=== PATIENT | female | born 1990 | race Caucasian/White ===

== ENCOUNTER 2017-09-15 20:04 | Observation (INO) | payer OTHER ==
[~2017-09-15] VITALS: Ht 154.9 cm; Wt 75.9 kg
[2017-09-15] MEDS ORDERED: BETAMETHASONE SOLUSPAN 6 MG/ML 5 ML VIAL IM ONE (22:25)
[2017-09-15 22:52] VITALS: BP 117/80
== END 2017-09-15 23:15 | disposition home or self-care (01) ==
LOC: 4S 20:04
PROVIDERS: ADMIT Obstetrics & Gynecology; ATTEND Obstetrics & Gynecology
DX: O42.913 Preterm premature rupture of membranes, unspecified as to length of time between rupture and onset of labor, third trimester (principal); O26.893 Other specified pregnancy related conditions, third trimester; R10.30 Lower abdominal pain, unspecified; Z3A.36 36 weeks gestation of pregnancy
CPT/HCPCS: 59025; 76805; 96372; G0378; J0702

== ENCOUNTER 2017-09-16 05:28 | Inpatient (IN) | payer OTHER ==
[~2017-09-16] VITALS: Ht 154.9 cm; Wt 75.7 kg
[2017-09-16] MEDS ORDERED: RINGERS SOLUTION,LACTATED 1,000 ML IV ONE ×2 (05:49→08:45)
[2017-09-16] MEDS ORDERED: RINGERS SOLUTION,LACTATED 1,000 ML IV SCH (05:51)
[2017-09-16] MEDS ORDERED: RINGERS SOLUTION,LACTATED 1,000 ML IV PRN (05:51)
[2017-09-16] MEDS ORDERED: OXYTOCIN 30 UNITS/LACT RINGERS 500 ML IV ONE (05:51)
[2017-09-16] MEDS ORDERED: METOCLOPRAMIDE HCL 5 MG/ML 2 ML VIAL IVP PRN (06:00)
[2017-09-16] MEDS ORDERED: CITRIC ACID/SODIUM CITRATE 30 ML SOLUTION UDCUP PO PRN (06:00)
[2017-09-16] MEDS ORDERED: AMPICILLIN SODIUM 2 GM/NS 100 ML IV ONE ×2 (06:18→06:30)
[2017-09-16 06:35] LABS: BASOPHILS % (AUTO) 0.1 % (0.0-2.0); EOSINOPHILS % (AUTO) 0 % (1.0-6.0); HEMATOCRIT 35.2 % (36-46); HEMOGLOBIN 12.3 g/dL (12.0-16.0); LYMPHOCYTES # (AUTO) 1.2 K/uL (1.0-4.8); LYMPHOCYTES % (AUTO) 12.1 % (22.0-44.0); MEAN CORPUSCULAR HEMOGLOBIN 33.6 pg (26.0-34.0); MEAN CORPUSCULAR HGB CONC 34.9 G/dL (31.0-37.0); MEAN CORPUSCULAR VOLUME 96 fL (80-100); MONOCYTES # (AUTO) 0.1 K/uL (0.1-1.0); NEUTROPHILS # (AUTO) 8.7 K/uL (1.8-7.7); PLATELET COUNT (AUTO)-OB 298 K/uL (150-450); RED BLOOD CELL COUNT(AUTO) 3.66 MIL/uL (4.00-5.20); RED CELL DISTRIBUTION WIDTH 12.9 % (11.5-14.5)
[2017-09-16 06:37] LABS: NEUTROPHILS % (AUTO) 86.8 % (40.0-70.0)
[2017-09-16] MEDS ORDERED: OXYTOCIN 10 UNITS/ML VIAL IM ONE ×3 (07:07→07:15)
[2017-09-16] MEDS ORDERED: LIDOCAINE HCL/PF 1% 30 ML VIAL ONE (07:13)
[2017-09-16] MEDS ORDERED: LIDOCAINE HCL/PF 1% 30 ML VIAL INJ PRN (07:30)
[2017-09-16] MEDS ORDERED: OXYGEN THERAPY IH SCH (08:00)
[2017-09-16] MEDS ORDERED: BENZOCAINE 20%/MENTHOL 56 GM SPRAY CANISTER TP PRN (08:45)
[2017-09-16] MEDS ORDERED: MEASLES/MUMPS/RUBELLA VACCINE, LIVE 0.5 ML/VIAL SQ ONE (08:45)
[2017-09-16] MEDS ORDERED: LANOLIN 7 GM OINTMENT TP PRN (08:45)
[2017-09-16] MEDS ORDERED: OxyCODONE HCL/ACETAMINOPHEN 5-325 MG TABLET PO PRN ×2 (08:45)
[2017-09-16] MEDS ORDERED: GLYCERIN/WITCH HAZEL LEAF 40 PADS JAR TP PRN (08:45)
[2017-09-16] MEDS: MAGNESIUM HYDROXIDE SUSPENSION 30 ML UDCUP PO SCH ×2 (10:14→20:14)
[2017-09-16] MEDS ORDERED: AMPICILLIN SODIUM 1 GM/NS 50 ML IV SCH (10:30)
[2017-09-16] MEDS: IBUPROFEN 600 MG TABLET PO PRN (17:58)
[2017-09-17] MEDS: IBUPROFEN 600 MG TABLET PO PRN (08:28)
[2017-09-17] MEDS: MAGNESIUM HYDROXIDE SUSPENSION 30 ML UDCUP PO SCH (08:28)
[2017-09-17] MEDS ORDERED: IBUP-2070 PO (09:33)
[2017-09-17] MEDS ORDERED: DSS100 PO (09:35)
== END 2017-09-17 10:15 | disposition home or self-care (01) | DRG 775 ==
LOC: 4S 05:28 → OBSVTOIN 05:28
PROVIDERS: ADMIT Obstetrics & Gynecology; ATTEND Obstetrics & Gynecology
PROC: 10E0XZZ Delivery of Products of Conception, External Approach (ICD-10-PCS; principal; 2017-09-16)
PROC: 0KQM0ZZ Repair Perineum Muscle, Open Approach (ICD-10-PCS; 2017-09-16)
PROC: 10907ZC Drainage of Amniotic Fluid, Therapeutic from Products of Conception, Via Natural or Artificial Opening (ICD-10-PCS; 2017-09-16)
DX: O60.14X0 Preterm labor third trimester with preterm delivery third trimester, not applicable or unspecified (principal); O70.1 Second degree perineal laceration during delivery; Z3A.36 36 weeks gestation of pregnancy; Z37.0 Single live birth
CPT/HCPCS: 86850; 86900; 86901; 96360; J0290; J2590; J3490; J7120